=== PATIENT | female | born 1960 | race Caucasian/White ===

== ENCOUNTER 2021-05-24 08:25 | Day surgery (SDC) | payer MEDICARE ==
[2011-12-25 16:30] VITALS: BP 98/55
[2021-05-24] MEDS ORDERED: Depo-Medrol 40 MG/ML IM ONE (08:26)
[2021-05-24] MEDS ORDERED: BUPIVACAINE 0.5% VIAL IJ ONE (08:26)
[2021-05-24] MEDS ORDERED: Lactated Ringers 1,000 ML IV ONE (09:39)
[2021-05-24] MEDS ORDERED: DIPRIVAN 200 MG/20 ML IV ONE (10:23)
--- NOTE | 2021-05-24 11:01 | XRAY ---
Indication: Right L4-S1 transforaminal DILLAN. Intraoperative fluoroscopy provided for 23 seconds. 4 digital spot images submitted for interpretation demonstrate posterior needle tips projecting over the expected right L4 and L5 nerve roots. Small amount of contrast injected for needle tip placement. Correlate with intraoperative findings/report.
--- NOTE | 2021-05-24 11:47 | XRAY ---
23 seconds of fluoroscopy was used in surgery for a right L4-S1 transforaminal DILLAN.
== END 2021-05-24 10:45 | disposition home or self-care (01) ==
LOC: SDC-PAIN 08:25
PROVIDERS: ATTEND Psychiatry & Neurology Pain Medicine
DX: M54.16 Radiculopathy, lumbar region (principal); E11.9 Type 2 diabetes mellitus without complications; Z79.899 Other long term (current) drug therapy
CPT/HCPCS: 64483; 64484; 72100; 77003; 82947; J1030; J2704; Q9966

== ENCOUNTER 2021-09-12 10:22 | Day surgery (SDC) | payer MEDICARE ==
[2011-12-25 16:30] VITALS: BP 98/55
[2021-09-12] MEDS ORDERED: Sodium Chloride 0.9(Preservative Free) 10 ML IJ ONE (10:23)
[2021-09-12] MEDS ORDERED: Depo-Medrol 40 MG/ML IM ONE (10:23)
[2021-09-12] MEDS ORDERED: Lactated Ringers 1,000 ML IV ONE (12:37)
[2021-09-12] MEDS ORDERED: DIPRIVAN 200 MG/20 ML IV ONE (12:44)
--- NOTE | 2021-09-12 15:19 | XRAY ---
Indication: Right L4-S1 transforaminal DILLAN. Intraoperative fluoroscopy provided for 23 seconds. 4 digital spot image submitted for interpretation demonstrates posterior needle tips projecting over the expected right L4 and L5 nerve roots. Small amount of contrast injected for needle tip placement. Correlate with intraoperative findings/report.
--- NOTE | 2021-09-12 15:25 | XRAY ---
23 seconds fluoroscopy time in surgery for right L4-S1 transforaminal DILLAN.
== END 2021-09-12 13:10 | disposition home or self-care (01) ==
LOC: SDC-PAIN 10:22
PROVIDERS: ATTEND Psychiatry & Neurology Pain Medicine
DX: M54.16 Radiculopathy, lumbar region (principal); E11.9 Type 2 diabetes mellitus without complications; Z79.899 Other long term (current) drug therapy
CPT/HCPCS: 64483; 64484; 72100; 77003; 82947; J1030; J2704; Q9966